=== PATIENT | male | born 1960 | race Caucasian/White ===

== ENCOUNTER → 2021-06-25 | Outpatient (CLI) | payer OTHER | LOC: MRI 15:32 | DX: S46.112A Strain of muscle, fascia and tendon of long head of biceps, left arm, initial encounter (principal); S43.432A Superior glenoid labrum lesion of left shoulder, initial encounter; M75.112 Incomplete rotator cuff tear or rupture of left shoulder, not specified as traumatic; X58.XXXA Exposure to other specified factors, initial encounter | CPT/HCPCS: 73221 ==